=== PATIENT | male | born 1960 | race Caucasian/White ===

== ENCOUNTER → 2020-10-04 | Day surgery (SDC) | payer OTHER ==
[~2020-10-04] VITALS: Ht 190.5 cm; Wt 144.0 kg
[~2020-10-04] MED LIST: DICL20GE TP; HYDR12.58 PO; LIDOCAINE 1%/EPI 1:100,000 20 ML VIAL. INJ ONE; MULT-658 PO; NAPR220T70 PO
[2020-10-04 11:26] VITALS: BP 167/104
--- NOTE | 2020-10-04 13:08 | PDOC4 ---
Operative Note Operative Note Date: October 042020 at 1305 Preoperative diagnosis: Back mass x2 Postoperative diagnosis: Same Procedure: Excision of back mass x2 Surgeon: Oz Specimen: Back mass x2 Dictation: Patient is 60-year-old male with complaints of a mass on his back one in the mid back one just below this. Procedure of excision was explained to the patient detail risk-benefit were also discussed including bleeding infection alternatives to this procedure also discussed with the patient who seemed to understand and gave a verbal written consent to have procedure performed. Patient was taken to the minors room placed in the sitting position the back was prepped and draped in usual sterile fashion using ChloraPrep. Area around the masses were injected with 1% lidocaine with epinephrine once this was complete the upper mass was excised with 15 blade scalpel is carried down through subcutaneous tissue encountering the mass appeared to be a sebaceous cyst the sebum was removed as well as the cystic capsule sharply with 15 blade scalpel and sent for pathology. Mass was 2 cm with a 1 cm margin the wound was closed in a single layer 4-0 subcuticular Monocryl Mastisol Steri-Strips were applied. Second mass was excised with a 15 blade scalpel elliptically, mass was 1 cm with a 1 cm margin. This wound was a little bit larger and was closed with a 3-0 nylon single interrupted sutures. Both were covered with island dressings. Patient tolerated procedure well was discharged home in stable condition all sponge instrument needle counts listed as correct estimated blood loss 5 mL ANGELES BARTON MD Oct 04, 2020 13:08
--- NOTE | 2020-10-04 13:10 | DISCH ---
DISCHARGE INSTRUCTIONS Condition on Discharge Condition on Discharge: Stable Activity After Discharge Activity Instructions for Disc: Resume previous activity Diet after Discharge Diet after Discharge: Regular Wound Incision Care Other wound/incision instructi: Naz showroro 24 hours Contacting the after DC Call your doctor for: If your condition worsens Follow-Up Follow up with: Dr. Barton in 2 weeks ANGELES BARTON MD Oct 04, 2020 13:10
== END | disposition home or self-care (01) ==
LOC: SURG 10:57 → EDBD 12:00
PROVIDERS: ATTEND Surgery
DX: L72.0 Epidermal cyst (principal); L08.9 Local infection of the skin and subcutaneous tissue, unspecified; J43.9 Emphysema, unspecified; M19.90 Unspecified osteoarthritis, unspecified site; Z87.891 Personal history of nicotine dependence; Z79.899 Other long term (current) drug therapy; Z98.890 Other specified postprocedural states
CPT/HCPCS: 11403; 11404; 88304; J3490

== ENCOUNTER → 2020-11-05 | Outpatient (CLI) | payer OTHER ==
[2020-10-04 11:26] VITALS: BP 167/104
[~2020-11-05] MED LIST changes: -LIDOCAINE 1%/EPI 1:100,000 20 ML VIAL. INJ ONE
--- NOTE | 2020-11-07 17:23 | PATHOLOGY ---
[facility] Accession Number: [id number] . 01 Material submitted: . cheek - LESION OF SKIN OF RIGHT CHEEK. Modifiers: right . 01 Clinician provided ICD-10: L98.9 . 02 Diagnosis: Skin and subcutaneous tissue, right cheek lesion excision: - Polypoid intradermal nevus, excised. (JPM:manav; 11/07/2020) QMS 11/07/2020 1532 Local . 02 Comment: There is no evidence of malignancy. (JPM:manav; 11/07/2020) . 02 Electronically signed: . Kane Zhao MD, Pathologist NPI- [id number] . 01 Gross description: . The specimen is received in formalin, labeled "Noé Hammond, right cheek lesion". Received is an ellipse of skin measuring 1.8 x 1.2 x 1.1 cm in greatest dimensions. The epidermal surface displays a well-defined, raised, light ashley lesion measuring 1.0 x 1.0 x 0.5 cm. The surgical margin is inked. The specimen is sectioned into 7 pieces and entirely submitted in cassettes A1-A3, with the tips placed in cassette A3. ([facility]; 11/06/2020) NRI/NRI 11/06/2020 1105 Local . 02 Pathologist provided ICD-10: D22.39 . 02 CPT . 300139 Specimen Comment: A courtesy copy of this report has been sent to [phone], [phone] Specimen Comment: [id number] Specimen Comment: Report sent to / DR MONROE Performed at: [address], [place], [place] [id number] MD Neil Ayon MD Phone: [phone] Performed at: 02 [facility] [address], [place] [id number] MD Kane Zhao MD Phone: [phone]
== END ==
LOC: SPEC 13:39
PROVIDERS: ATTEND Plastic Surgery
DX: L98.9 Disorder of the skin and subcutaneous tissue, unspecified (principal)
CPT/HCPCS: 88305

== ENCOUNTER 2020-12-06 07:40 | Day surgery (SDC) | payer OTHER ==
[~2020-12-06] VITALS: Ht 190.5 cm; Wt 144.0 kg
[~2020-12-06 07:40] MED LIST changes: +ACETAMINOPHEN 500 MG TABLET PO PRN; +BUPIVACAINE-EPI 0.25%-1:200000 MPF 30 ML VIAL. ONE; +HYDROmorphone 2 MG/ML VIAL IVP PRN; +IV RINGERS,LACTATED 1000ML 1,000 ML IV SCH; +MORPHINE SULFATE 2 MG/ML INJ. IVP PRN; +PROCHLORPERAZINE 10 MG/2 ML VIAL. IVP PRN; +ceFAZolin SODIUM 3 GM in IV DEXTROSE 5% 100ML 100 ML IV PRN; +fentaNYL PF VIAL 100 MCG/2 ML VIAL IVP PRN
[2020-12-06 08:19] VITALS: BP 144/87
[2020-12-06] MEDS ORDERED: PROPOFOL 10 MG/ML (20ML) VIAL. IV ONE (08:27)
[2020-12-06] MEDS ORDERED: LIDOCAINE 2% PF 5 ML VIAL. ONE (08:27)
[2020-12-06] MEDS ORDERED: ONDANSETRON PF 4 MG/2 ML VIAL. ONE (08:28)
[2020-12-06] MEDS ORDERED: DEXAMETHASONE SOD PHOS 4 MG/ML VIAL ONE (08:28)
[2020-12-06] MEDS ORDERED: MIDAZOLAM HCL/PF 2 MG/2 ML VIAL. ONE (08:29)
[2020-12-06] MEDS ORDERED: ROCURONIUM 100 MG/10 ML VIAL. ONE (08:29)
[2020-12-06] MEDS ORDERED: fentaNYL PF VIAL 250 MCG/5 ML VIAL ONE (08:30)
[2020-12-06] MEDS ORDERED: INSULIN LISPRO 100 UNIT/ML 3ML VIAL for OP,RR ONLY. SQ PRN (08:30)
[2020-12-06] MEDS ORDERED: NEOSTIGMINE METHYLSULFATE 5 MG/5 ML SYRINGE. ONE (08:31)
[2020-12-06] MEDS ORDERED: GLYCOPYRROLATE 1 MG/5 ML VIAL. ONE (08:31)
--- NOTE | 2020-12-06 08:54 | PDOC1 ---
History and Physical Date of Admission Date of Admission DATE: 12/06/20 TIME: 08:51 Identification/Chief Complaint Chief Complaint Painful bulge at his umbilicus Source Source: Patient History of Present Illness History of Present Illness 60-year-old male with complaints of a painful bulge at his umbilicus been present for several years been getting larger and more painful. Past Medical History Cardiovascular: No pertinent hx Pulmonary: No pertinent hx GI: No pertinent hx Heme/Onc: No pertinent hx Hepatobiliary: No pertinent hx Psych: No pertinent hx Rheumatologic: No pertinent hx Infectious disease: No pertinent hx ENT: No pertinent hx Renal/: No pertinent hx Endocrine: Diabetes Dermatology: No pertinent hx Past Surgical History Past Surgical History: Other (Excision of skin lesions) Family History Family History: No Significant Social History Smoke: No ALCOHOL: none Drugs: None Current Medications Current Medications Current Medications Fentanyl Citrate (Fentanyl 2ml Vial) 25 mcg PRN Q5MIN PRN IVP MILD PAIN 1-3; Start 12/06/20 at 06:00; Stop 12/07/20 at 05:59 Fentanyl Citrate (Fentanyl 2ml Vial) 50 mcg PRN Q5MIN PRN IVP MODERATE PAIN 4- 6; Start 12/06/20 at 06:00; Stop 12/07/20 at 05:59 Morphine Sulfate (Morphine Sulfate) 1 mg PRN Q10MIN PRN IVP SEVERE PAIN 7-10; Start 12/06/20 at 06:00; Stop 12/07/20 at 05:59 Ringer's Solution 1,000 ml @ 30 mls/hr Q24H IV Last administered on 12/06/20at 08:37; Start 12/06/20 at 06:00; Stop 12/06/20 at 17:59 Hydromorphone HCl (Dilaudid) 0.5 mg PRN Q10MIN PRN IVP SEVERE PAIN 7-10, 2nd CHOICE; Start 12/06/20 at 06:00; Stop 12/07/20 at 05:59 Prochlorperazine Edisylate (Compazine) 5 mg PACU PRN PRN IVP NAUSEA, MRX1; Start 12/06/20 at 06:00; Stop 12/07/20 at 05:59 Acetaminophen (Tylenol) 1,000 mg 1X PREOP PRN PO PRIOR TO PROCEDURE Last administered on 12/06/20at 08:37; Start 12/06/20 at 06:00 Cefazolin Sodium 3 gm/Dextrose 100 ml @ 200 mls/hr 1X PREOP PRN IV PRIOR TO PROCEDURE; Start 12/06/20 at 06:00; Stop 12/06/20 at 15:00 Bupivacaine HCl/ Epinephrine Bitart (Sensorcaine-Epi 0.25%-1:504604 Mpf) 30 ml STK-MED ONCE .ROUTE ; Start 12/06/20 at 07:08; Stop 12/06/20 at 07:08; Status DC Insulin Human Lispro (HumaLOG VIAL for OP,RR ONLY) 0-10 units PRN Q1HR PRN SQ PER PROTOCOL; Start 12/06/20 at 08:30; Stop 12/07/20 at 08:29 Propofol (Diprivan) 200 mg STK-MED ONCE IV ; Start 12/06/20 at 08:27; Stop 12/06/20 at 08:28; Status DC Lidocaine HCl (Lidocaine Pf 2% Vial) 5 ml STK-MED ONCE .ROUTE ; Start 12/06/20 at 08:27; Stop 12/06/20 at 08:28; Status DC Dexamethasone Sodium Phosphate (Decadron) 4 mg STK-MED ONCE .ROUTE ; Start 12/06/20 at 08:28; Stop 12/06/20 at 08:28; Status DC Ondansetron HCl (Zofran) 4 mg STK-MED ONCE .ROUTE ; Start 12/06/20 at 08:28; Stop 12/06/20 at 08:28; Status DC Rocuronium [place] (Zemuron) 100 mg STK-MED ONCE .ROUTE ; Start 12/06/20 at 08:29; Stop 12/06/20 at 08:29; Status DC Midazolam HCl (Versed) 2 mg STK-MED ONCE .ROUTE ; Start 12/06/20 at 08:29; Stop 12/06/20 at 08:29; Status DC Fentanyl Citrate (Fentanyl 5ml Vial) 250 mcg STK-MED ONCE .ROUTE ; Start 12/06/20 at 08:30; Stop 12/06/20 at 08:30; Status DC Neostigmine [place] (Neostigmine Methylsulfate) 5 mg STK-MED ONCE .ROUTE ; Start 12/06/20 at 08:31; Stop 12/06/20 at 08:31; Status DC Glycopyrrolate (Robinul) 1 mg STK-MED ONCE .ROUTE ; Start 12/06/20 at 08:31; Stop 12/06/20 at 08:32; Status DC Active Scripts Active Reported Aleve (Naproxen Sodium) 220 Mg Tablet 220 Mg PO BID Voltaren Arthritis Pain (Diclofenac Sodium) 20 Gm Gel..gram. 20 Gm TP PRN PRN Centrum Silver Tablet (Multivits-Min/Fa/Lycopene/Lut) 1 Each Tablet 1 Each PO DAILY Hydrochlorothiazide Tablet (Hydrochlorothiazide) 12.5 Mg Tablet 12.5 Mg PO DAILY Allergies Allergies: Coded Allergies: No Known Drug Allergies (Unverified , 12/06/20) ROS Cardiovascular: yes Edema Gastrointestinal: Yes Abdominal Pain Physical Exam General: Alert, Oriented X3, Cooperative, No acute distress HEENT: Atraumatic, EOMI Lungs: Clear to auscultation, Normal air movement Heart: RRR, no murmurs Abdomen: Normal bowel sounds, Soft, Other (Tender to palpation at the umbilicus with bulge no skin changes) Extremities: Other (1+ lower extremity edema) Skin: No significant lesion Vitals Vitals Vital Signs Date Time Temp Pulse Resp B/P (MAP) Pulse Ox O2 Delivery O2 Flow Rate FiO2 12/06/20 08:19 98.6 94 20 94 98.6 12/06/20 08:07 144/87 Room Air Labs Labs Laboratory Tests Test 12/06/20 08:24 Glucose (Fingerstick) 110 mg/dL (70-99) Laboratory Tests Test 12/06/20 08:24 Glucose (Fingerstick) 110 mg/dL (70-99) VTE Prophylaxis Ordered VTE Prophylaxis Devices: Yes VTE Pharmacological Prophylaxi: Contraindicated Assessment/Plan Assessment/Plan Large umbilical hernia plan robotic repair Justifications for Admission Other Justification ANGELES BARTON MD Dec 06, 2020 08:54
[2020-12-06] MEDS ORDERED: SUCCINYLCHOLINE 200 MG/10 ML VIAL. ONE (08:55)
[2020-12-06] MEDS ORDERED: IPRATRPIUM/ALBUTEROL 0.5/2.5MG 3 ML NEBU. NEB ONE (09:00)
[2020-12-06] MEDS ORDERED: PHENYLEPHRINE in 0.9% NACL PF 1 MG/10 ML SYRINGE. IV ONE ×2 (09:55→09:56)
--- NOTE | 2020-12-06 10:47 | PDOC4 ---
Operative Note Operative Note Date: December 06, 2020 at 1045 Preoperative diagnosis: Incarcerated ventral hernia Postoperative diagnosis: Same Procedure: Robotic assisted laparoscopic ventral hernia repair with mesh Surgeon: Oz Specimen: None Dictation: Patient is a 60-year-old male with complaints of a painful bulge at his umbilicus. Procedure of robotic assisted laparoscopic ventral hernia repair with mesh was explained to the patient detail risk benefits were also discussed including bleeding infection injury to intra-abdominal contents possible necessitating further open operations alternatives to this procedure also discussed with the patient who seemed to understand and gave a verbal and written consent to have the procedure performed. Patient was taken to the operating room placed in the supine position general anesthesia was initiated on ce patient was sleeping intubated his abdomen was prepped and draped usual sterile fashion using ChloraPrep. Area in the left upper quadrant was injected with quarter percent Marcaine with epinephrine incision was made 11 blade scalpel and a 5 mm Visiport was placed under direct visualization in the abdomen creating pneumoperitoneum once this was complete 8 mm ventral port was placed in the left midabdomen and an 8 mm da Nayely ports placed in left lower abdomen and the 5 mm Visiport was changed out to 8 mm da Nayely port. Da Nayely robot is brought and docked all port sites surgeon went to the robotic console using a grasper and Endo Brynn scissors the incarcerated omentum within the hernia defect was reduced the prepared meal fat was taken down exposing the hernia defect and fascial edges. The fascia was then closed with a running 2 OV lock nonabsorbable suture. Ventral light ST mesh was then placed over the hernia defect this was sewn into place with a 2 OV lock absorbable suture and the preperitoneal fat was closed over the mesh. The da Nayely robot was undocked from all port sites all ports were removed the incisions at all port sites were closed with 4 subcuticular Monocryl Mastisol Steri-Strips and island dressings were applied. Patient was awakened and extubated in the operating room taken to recovery in stable condition all sponge instrument needle counts listed as correct estimated blood loss 5 mL ANGELES BARTON MD Dec 06, 2020 10:47
[2020-12-06] MEDS ORDERED: OXYC-325 PO (10:49)
--- NOTE | 2020-12-06 10:51 | DISCH ---
DISCHARGE INSTRUCTIONS Condition on Discharge Condition on Discharge: Stable Activity After Discharge Activity Instructions for Disc: Avoid exertion Other activity instructions: No lifting more than 20 pounds for 2 weeks Diet after Discharge Diet after Discharge: Regular Wound Incision Care Other wound/incision instructi: Naz shower in 24 hours Contacting the DRVaughn after DC Call your doctor for: If your condition worsens Follow-Up Follow up with: Dr. Barton in 2 weeks ANGELES BARTON MD Dec 06, 2020 10:51
[2020-12-06] MEDS ORDERED: SUGAMMADEX SODIUM 200 MG/2 ML VIAL. IVP ONE (11:00)
[2020-12-06] MEDS ORDERED: NALOXONE 0.4 MG/ML VIAL. ONE (11:02)
[2020-12-06 12:12] VITALS: BP 135/74
== END 2020-12-06 12:37 | disposition home or self-care (01) ==
LOC: SURG 07:40
PROVIDERS: ATTEND Surgery
DX: K43.6 Other and unspecified ventral hernia with obstruction, without gangrene (principal); J43.9 Emphysema, unspecified; M19.90 Unspecified osteoarthritis, unspecified site; E66.9 Obesity, unspecified; F17.210 Nicotine dependence, cigarettes, uncomplicated; Z98.890 Other specified postprocedural states
CPT/HCPCS: 49653; 82962; 94640; A4364; A4930; A6219; A6258; A6402; C1781; J0330; J1100; J2250; J2310; J2370; J2405; J2704; J3010; J3490; S2900; A4223; A4657; J2710

== ENCOUNTER 2021-06-09 22:37 | Emergency (ER) | payer OTHER ==
[~2021-06-09] VITALS: Ht 190.5 cm; Wt 145.5 kg
[~2021-06-09 22:37] MED LIST changes: -ACETAMINOPHEN 500 MG TABLET PO PRN; -BUPIVACAINE-EPI 0.25%-1:200000 MPF 30 ML VIAL. ONE; -HYDROmorphone 2 MG/ML VIAL IVP PRN; -IV RINGERS,LACTATED 1000ML 1,000 ML IV SCH; -MORPHINE SULFATE 2 MG/ML INJ. IVP PRN; +OXYC-325 PO; -PROCHLORPERAZINE 10 MG/2 ML VIAL. IVP PRN; -ceFAZolin SODIUM 3 GM in IV DEXTROSE 5% 100ML 100 ML IV PRN; -fentaNYL PF VIAL 100 MCG/2 ML VIAL IVP PRN
[2021-06-09] MEDS ORDERED: LIDOCAINE 1%/EPI 1:100,000 20 ML VIAL. INJ ONE (23:00)
[2021-06-09 23:18] VITALS: BP 136/76
--- NOTE | 2021-06-09 23:55 | PHYS DOC ---
Past Medical History Past Surgical History: Other Additional Past Surgical Histo: HERNIA REPAIR Smoking Status: Never Smoker Alcohol Use: None General Adult EDM: Chief Complaint: HEMORRHOIDS HPI: HPI: Patient is a 61 year old male presents with a chief complaint of rectal pain. Patient states over the last 2 days he has noticed some swelling in his left buttocks. This afternoon patient states swelling ruptured with discharge blood clots. Patient states since rupturing his pain has greatly improved but not completely resolved and has continued to bleed. Review of Systems: Review of Systems: Constitutional: Denies fever or chills. [] Eyes: Denies change in visual acuity. [] HENT: Denies nasal congestion or sore throat. [] Respiratory: Denies cough or shortness of breath. [] Cardiovascular: Denies chest pain or edema. [] GI: Denies abdominal pain, nausea, vomiting, bloody stools or diarrhea. [Positive rectal pain] : Denies dysuria. [] Musculoskeletal: Denies back pain or joint pain. [] Integument: Denies rash. [] Neurologic: Denies headache, focal weakness or sensory changes. [] Endocrine: Denies polyuria or polydipsia. [] Lymphatic: Denies swollen glands. [] Psychiatric: Denies depression or anxiety. [] Heart Score: C/O Chest Pain: N/A Risk Factors: Risk Factors: DM, Current or recent (<one month) smoker, HTN, HLP, family histo ry of CAD, obesity. Risk Scores: Score 0 - 3: 2.5% MACE over next 6 weeks - Discharge Home Score 4 - 6: 20.3% MACE over next 6 weeks - Admit for Clinical Observation Score 7 - 10: 72.7% MACE over next 6 weeks - Early Invasive Strategies Current Medications: Current Medications Medications (Trade) Dose Ordered Sig/Vicente Start Time Stop Time Status Last Admin Dose Admin Lidocaine/ Epinephrine (LIDOCAINE 1%-EPI 1:100,000 Multi-Dose) 20 ml 1X ONCE 06/09/21 23:00 06/09/21 23:01 DC 06/09/21 23:02 20 ML Allergies: Allergies: Allergies Coded Allergies Type Severity Reaction Last Updated Verified No Known Drug Allergies 12/06/20 No Physical Exam: PE: Constitutional: Well developed, well nourished, no acute distress, non-toxic appearance. [] HENT: Normocephalic, atraumatic, bilateral external ears normal, oropharynx moist, no oral exudates, nose normal. [] Eyes: PERRLA, EOMI, conjunctiva normal, no discharge. [] Neck: Normal range of motion, no tenderness, supple, no stridor. [] Cardiovascular:Heart rate regular rhythm, no murmur [] Lungs & Thorax: Bilateral breath sounds clear to auscultation [] Abdomen: Bowel sounds normal, soft, no tenderness, no masses, no pulsatile masses. [] Skin: Warm, dry, no erythema, no rash. [] Back: No tenderness, no CVA tenderness. [] Extremities: No tenderness, no cyanosis, no clubbing, ROM intact, no edema. [] Neurologic: Alert and oriented X 3, normal motor function, normal sensory function, no focal deficits noted. [] Psychologic: Affect normal, judgement normal, mood normal. [] Rectal exam patient had large swelling consistent with thrombosed hemorrhage around the 8 o'clock position. There was open wound that was draining oozing blood. Area is tender to palpation. Consistent with open thrombosed hemorrhoid. Current Patient Data: Vital Signs: Vital Signs Date Time Temp Pulse Resp B/P (MAP) Pulse Ox O2 Delivery O2 Flow Rate FiO2 06/09/21 22:45 98.6 111 19 149/80 (103) 94 Room Air 98.6 EKG: EKG: [] Radiology/Procedures: Radiology/Procedures: [] Course & Med Decision Making: Course & Med Decision Making Pertinent Labs and Imaging studies reviewed. (See chart for details) [] Procedure Thrombosed hemorrhoid 8 o'clock position of the rectum lidocaine with epi was used for local anesthesia approximately 10 cc used. Area was cleaned with Betadine 11 blade was used and a 1 cm incision was made. Blood clots removed. Area was packed with half-inch normal pack Patient was advised to take Tylenol ibuprofen as needed for pain. Advise he can take his hydrocodone. Patient advised he could remove the packing within 48 hours. Patient advised to follow-up with his primary care physician or his previous general surgeon. Evgeny Disclaimer: Evgeny Disclaimer: This electronic medical record was generated, in whole or in part, using a voice recognition dictation system. Departure Departure Impression: Primary Impression: Thrombosed hemorrhoids Disposition: HOME / SELF CARE / HOMELESS Condition: STABLE Referrals: WILLIAM BONILLA III, MD (PCP) Patient Instructions: Hemorrhoids, Incision and Drainage Additional Instructions: Remove patient in 48hrs. Follow up with PCP or general surgery- CATRACHITO MABRY DO Jun 09, 2021 23:55
== END 2021-06-10 00:12 | disposition home or self-care (01) ==
LOC: ER 22:37
DX: K64.5 Perianal venous thrombosis (principal)
CPT/HCPCS: 46083; 99284; J3490

== ENCOUNTER 2021-06-11 21:02 | Emergency (ER) | payer OTHER ==
[~2021-06-11] VITALS: Ht 190.5 cm; Wt 145.0 kg
[2021-06-11 21:40] VITALS: BP 147/82
--- NOTE | 2021-06-11 22:02 | PHYS DOC ---
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 The patient states packing fell out yesterday and drainage has stopped. Denies any fever. (WARD CHRISTY Vitor MACHINE [employer] CLE[employer]ER) Review of Systems: Review of Systems: Constitutional: Denies fever or chills. [] Musculoskeletal: Denies back pain or joint pain. [] Integument: Visit for wound check Neurologic: Denies headache, focal weakness or sensory changes. [] Psychiatric: Denies depression or anxiety. [] ([place] MACHINE [employer]ER) Heart Score: C/O Chest Pain: N/A Risk Factors: Risk Factors: DM, Current or recent (<one month) smoker, HTN, HLP, family history of CAD, obesity. Risk Scores: Score 0 - 3: 2.5% MACE over next 6 weeks - Discharge Home Score 4 - 6: 20.3% MACE over next 6 weeks - Admit for Clinical Observation Score 7 - 10: 72.7% MACE over next 6 weeks - Early Invasive Strategies (WESTLEYWARD Vitor MACHINE [employer]ER) Allergies: Allergies: Allergies Coded Allergies Type Severity Reaction Last Updated Verified No Known Drug Allergies 12/06/20 No (WARD CHRISTY Vitor MACHINE [employer]ER) Physical Exam: PE: Constitutional: Well developed, well nourished, no acute distress, non-toxic appearance. [] Skin: Left buttock with an open wound, no packing noted, no erythema from the wound, no drainage, wound appears to be healing well Back: No tenderness, no CVA tenderness. [] Extremities: No tenderness, no cyanosis, no clubbing, ROM intact, no edema. [] Neurologic: Alert and oriented X 3, normal motor function, normal sensory function, no focal deficits noted. [] Psychologic: Affect normal, judgement normal, mood normal. [] (WARD CHRISTY MACHINE [employer] CLE[employer]ER) Current Patient Data: Vital Signs: Vital Signs Date Time Temp Pulse Resp B/P (MAP) Pulse Ox O2 Delivery O2 Flow Rate FiO2 06/11/21 21:40 98.1 100 12 147/82 (103) 94 Room Air 98.1 (WARD CHRISTY APRN) EKG: EKG: [] (WARD CHRISTY APRN) Radiology/Procedures: Radiology/Procedures: [] (WARD CHRISTY APRN) Course & Med Decision Making: Course & Med Decision Making Pertinent Labs and Imaging studies reviewed. (See chart for details) This is a 61-year-old male patient presenting to the ED today for wound check for a thrombosed abscess that was drained 2 days ago. Packing has come out. The wound is healing well, there is no drainage from the wound. Wound care instructions provided to patient. Follow-up with PCP as well as general surgeon (WARD CHRISTY APRN) Course & Med Decision Making Patients Care and treatment plan provided by ER Nurse Practitioner. I was available for consult. Patient's chart reviewed. (CATRACHITO MABRY DO) Dragon Disclaimer: Dragon Disclaimer: This electronic medical record was generated, in whole or in part, using a voice recognition dictation system. (WARD CHRISTY APRN) Departure Departure Impression: Primary Impression: Wound of cheek Qualified Codes: S01.402A - Unspecified open wound of left cheek and temporomandibular area, initial encounter Disposition: HOME / SELF CARE / HOMELESS Condition: STABLE Referrals: WILLIAM BONILLA III, MD (PCP) ANDERSON PORTER MD follow up in 2-7 days Patient Instructions: Wound Check Additional Instructions: You were evaluated in the emergency room, your packing is out of the wound. The wound appears to be healing well. Keep the clean and dry. Follow-up with your primary care doctor as well as the provided general surgeon in the next 7 days WARD CHRISTY APRN Jun 11, 2021 22:02 CATRACHITO MABRY DO Jun 12, 2021 03:43
== END 2021-06-11 22:14 | disposition home or self-care (01) ==
LOC: ER 21:02
DX: S01.412D Laceration without foreign body of left cheek and temporomandibular area, subsequent encounter (principal); X58.XXXD Exposure to other specified factors, subsequent encounter
CPT/HCPCS: 99281